=== PATIENT | female | born 2000 | race African-American/Black ===

== ENCOUNTER 2022-03-21 12:49 | Emergency (ER) | payer MEDICAID ==
[~2022-03-21] VITALS: Ht 165.1 cm; Wt 78.0 kg
[2022-03-21 14:58] LABS: CHLORIDE 107 mEq/L (98-107)
[2022-03-21 15:01] LABS: BASOPHILS % 0.3 % (0.0-2.0); EOSINOPHILS % 0.1 % (0.0-5.0); HEMOGLOBIN. 12.6 g/dL (12.0-16.0); LYMPHOCYTES % 16.6 % (20.0-50.0); MEAN CORPUSCULAR HEMOGLOBIN 25.7 pg (28.0-32.0); MEAN CORPUSCULAR VOLUME 81.6 fL (81.0-99.0); MEAN PLATELET VOLUME 8.3 fl (7.4-10.4); MONOCYTES % 5.2 % (2.0-8.0); NEUTROPHILS % 77.8 % (40.0-76.0); PLATELET 219 x1000/uL (130-400)
[2022-03-21 15:05] LABS: ETHANOL BLOOD < 10 mg/dL
[2022-03-21 16:19] LABS: *AMPHETAMINES SCREEN URINE NEGATIVE (NEGATIVE); *BARBITURATES SCREEN URINE NEGATIVE (NEGATIVE); *BENZODIAZEPINES SCREEN URINE NEGATIVE (NEGATIVE); *COCAINE SCREEN URINE NEGATIVE (NEGATIVE); METHADONE URINE SCREEN NEGATIVE (NEGATIVE); OPIATES URINE SCREEN NEGATIVE (NEGATIVE); PHENCYCLIDINE URINE SCREEN NEGATIVE (NEGATIVE)
[2022-03-21 16:25] LABS: CANNABINOID URINE SCREEN PRESUMTIVE POSITIVE (NEGATIVE)
[2022-03-21 17:03] VITALS: BP 123/65
== END 2022-03-21 17:03 | disposition home or self-care (01) ==
LOC: ER 12:49
DX: F41.9 Anxiety disorder, unspecified (principal); F43.0 Acute stress reaction
CPT/HCPCS: 36415; 80048; 80305; 80307; 80320; 80329; 81025; 85025; 99283; G0480